=== PATIENT | male | born 1940 | race Caucasian/White ===

== ENCOUNTER 2022-05-01 08:32 | Day surgery (SDC) | payer MEDICARE, BC ==
[~2022-05-01 08:32] MED LIST: Bupivacaine 0.5% 50 ML MDV ONE; Bupivacaine 0.5%/EPINEPHrine 1:200,000 50 ML MDV ONE; Lidocaine 1% with EPINEPHrine 1:100,000 50 ML MDV ONE
[2022-05-01] MEDS ORDERED: Ondansetron 4 MG/2 ML SDV ONE (09:22)
[2022-05-01] MEDS ORDERED: Rocuronium 50 MG/5 ML Vial ONE (09:22)
[2022-05-01] MEDS ORDERED: Dexamethasone 4 MG/ML SDV ONE (09:22)
[2022-05-01] MEDS ORDERED: Glycopyrrolate 0.2 MG/ML 5 ML MDV ONE (09:22)
[2022-05-01] MEDS ORDERED: Neostigmine Methylsulfate 1 MG/ML 5 ML Syringe ONE (09:22)
[2022-05-01] MEDS ORDERED: Succinylcholine 200 MG/10 ML MDV ONE (09:22)
[2022-05-01] MEDS ORDERED: Propofol 200 MG/20 ML SDV ONE (09:22)
[2022-05-01 09:56] VITALS: BP 162/93; PULSE 49
[2022-05-01] MEDS ORDERED: fentaNYL 250 MCG/5 ML SDV ONE (09:59)
[2022-05-01] MEDS ORDERED: Acetaminophen 500 MG Tab PO ONE (10:30)
[2022-05-01] MEDS ORDERED: Lactated Ringers 1,000 ML IV SCH (11:00)
[2022-05-01] MEDS ORDERED: ceFAZolin 2 GM in Sodium Chloride 0.9% 50 ML IV ONE (12:00)
[2022-05-01] MEDS ORDERED: ceFAZolin 2 GM in Premix Bag 1 BAG IV ONE (12:00)
== END 2022-05-01 13:18 | disposition home or self-care (01) ==
LOC: JP.SDS 08:32
PROVIDERS: ATTEND Student in an Organized Health Care Education/Training Program
DX: R19.09 Other intra-abdominal and pelvic swelling, mass and lump (principal); Z53.09 Procedure and treatment not carried out because of other contraindication; E78.00 Pure hypercholesterolemia, unspecified; R59.1 Generalized enlarged lymph nodes; N18.31 Chronic kidney disease, stage 3a; K75.81 Nonalcoholic steatohepatitis (NASH); Z79.899 Other long term (current) drug therapy; Z87.891 Personal history of nicotine dependence; Z90.49 Acquired absence of other specified parts of digestive tract; Z98.890 Other specified postprocedural states; Z86.16 Personal history of COVID-19
CPT/HCPCS: 76870; A9270; J7120; J0330; J1100; J2405; J2704; J2710; J3010; J3490

== ENCOUNTER 2022-05-08 07:18 | Day surgery (SDC) | payer MEDICARE, BC ==
[~2022-05-08 07:18] MED LIST changes: +Dexamethasone 4 MG/ML SDV ONE; +Glycopyrrolate 0.2 MG/ML 5 ML MDV ONE; +Neostigmine Methylsulfate 1 MG/ML 5 ML Syringe ONE; +Ondansetron 4 MG/2 ML SDV ONE; +Propofol 200 MG/20 ML SDV ONE; +Rocuronium 50 MG/5 ML Vial ONE; +Succinylcholine 200 MG/10 ML MDV ONE; +fentaNYL 100 MCG/2 ML SDV ONE
[2022-05-08] MEDS ORDERED: Acetaminophen 500 MG Tab PO ONE (07:30)
[2022-05-08] MEDS ORDERED: Lactated Ringers 1,000 ML IV SCH (08:00)
[2022-05-08] MEDS ORDERED: Lactated Ringers 1,000 ML ONE (09:52)
[2022-05-08 12:33] VITALS: PULSE 59
[2022-05-08 12:56] VITALS: BP 157/69
== END 2022-05-08 13:40 | disposition home or self-care (01) ==
LOC: JP.SDS 07:18
PROVIDERS: ATTEND Student in an Organized Health Care Education/Training Program
DX: C82.45 Follicular lymphoma grade IIIb, lymph nodes of inguinal region and lower limb (principal); N40.0 Benign prostatic hyperplasia without lower urinary tract symptoms; N18.31 Chronic kidney disease, stage 3a; E78.00 Pure hypercholesterolemia, unspecified; Z79.899 Other long term (current) drug therapy; Z87.891 Personal history of nicotine dependence; Z86.16 Personal history of COVID-19
CPT/HCPCS: 27048; 88184; 88185; 88307; 88341; 88342; 88360; A9270; J0330; J1100; J2405; J2704; J2710; J3010; J3490; J7120

== ENCOUNTER 2022-08-21 08:53 | Emergency (ER) | payer MEDICARE, BC ==
[2022-08-21 09:06] VITALS: BP 123/87; PULSE 73
[2022-08-21] MEDS ORDERED: HYDROmorphone 0.5 MG/0.5 ML Syringe IM ONE ×2 (09:34→10:47)
== END 2022-08-21 13:08 | disposition home or self-care (01) ==
LOC: JP.ED 08:53
DX: M25.511 Pain in right shoulder (principal); M54.2 Cervicalgia; Z87.891 Personal history of nicotine dependence; Z79.899 Other long term (current) drug therapy
CPT/HCPCS: 72141; 73221; 96372; 99283; J1170

== ENCOUNTER 2024-03-19 10:00 | Emergency (ER) | payer MEDICARE, BC ==
[2024-03-19 10:18] VITALS: BP 130/84; PULSE 90
[2024-03-19 10:50] LABS: BASOPHILS ABSOLUTE AUTO 0.03 K/uL (0.00-0.10); BASOPHILS PERCENT AUTO 0.5 % (0.1-1.3); EOSINOPHILS ABSOLUTE AUTO 0.08 K/uL (0.00-0.40); EOSINOPHILS PERCENT AUTO 1.3 % (0.0-5.4); HEMATOCRIT 38.4 % (38.4-49.7); HEMOGLOBIN 13.9 g/dL (12.9-16.9); IMMATURE GRAN PERCENT AUTO 0.3 % (0.0-0.7); LYMPHOCYTES ABSOLUTE AUTO 0.81 K/uL (0.8-3.3); MEAN CORPUSCULAR HEMOGLOBIN 35.9 pg (31.6-35.5); MEAN CORPUSCULAR HGB CONC 36.2 g/dL (31.6-35.5); MEAN CORPUSCULAR VOLUME 99.2 fL (81.4-99.0); MONOCYTES ABSOLUTE AUTO 0.37 K/uL (0.20-0.90); MONOCYTES PERCENT AUTO 5.9 % (3.3-12.6); NEUTROPHILS ABSOLUTE AUTO 4.92 K/uL (1.0-7.6); PLATELET COUNT,PLT 127 K/uL (130-375); RED BLOOD CELL COUNT 3.87 M/uL (4.14-5.76); WHITE BLOOD CELL COUNT,WBC 6.2 K/uL (3.2-11.0)
[2024-03-19 10:54] LABS: IMMATURE GRAN ABSOLUTE AUTO 0.02 K/uL (0.00-0.23)
== END 2024-03-19 15:10 | disposition home or self-care (01) ==
LOC: JP.ED 10:00
DX: L03.115 Cellulitis of right lower limb (principal); N18.9 Chronic kidney disease, unspecified; Z86.16 Personal history of COVID-19; Z90.49 Acquired absence of other specified parts of digestive tract; Z79.2 Long term (current) use of antibiotics
CPT/HCPCS: 36415; 85025; 93971-26; 93971-RT; 99283; 99284

== ENCOUNTER 2025-05-25 06:23 | Day surgery (SDC) | payer MEDICARE, BC ==
[2025-05-25] MEDS: Lactated Ringers 1,000 ML IV SCH (07:06)
[2025-05-25 07:15] LABS: PLATELET COUNT,PLT 155.0 K/uL (130-375); RED BLOOD CELL COUNT 3.76 M/uL (4.14-5.76); WHITE BLOOD CELL COUNT,WBC 3.0 K/uL (3.2-11.0)
[2025-05-25] MEDS ORDERED: fentaNYL 250 MCG/5 ML SDV ONE (07:29)
[2025-05-25] MEDS ORDERED: Dexamethasone 4 MG/ML SDV ONE (07:30)
[2025-05-25] MEDS ORDERED: Ondansetron 4 MG/2 ML SDV ONE (07:30)
[2025-05-25] MEDS ORDERED: Propofol 200 MG/20 ML SDV ONE (07:30)
[2025-05-25 07:36] LABS: A/G RATIO 1.1 (1.2-2.2); ALANINE AMINOTRANSFERASE,ALT 56 U/L (12-78); ASPARTATE AMNIOTRANSFERASE,AST 46 U/L (15-37); BILIRUBIN TOTAL 0.9 mg/dL (0.2-1.0); BLOOD UREA NITROGEN,BUN 24 mg/dL (7-18); CARBON DIOXIDE,CO2 30 mmol/L (21-32); CHLORIDE,CL 106 mmol/L (100-108); CREATININE 1.1 mg/dL (0.8-1.3); EST CRCL DRUG DOSING (CG) 49.10 mL/min; ESTIMATED GFR 66 mL/min (>60); GLUCOSE RANDOM 111 mg/dL (74-106); POTASSIUM,K 4.3 mmol/L (3.6-5.2); PROTEIN TOTAL,TP 6.9 g/dL (6.4-8.2); SODIUM,NA 141 mmol/L (140-148)
[2025-05-25] MEDS: metroNIDAZOLE/Normal Saline 500 MG in Premix Bag 1 BAG IV ONE (07:37)
[2025-05-25] MEDS ORDERED: Glycopyrrolate 0.2 MG/ML 5 ML MDV ONE (08:23)
[2025-05-25] MEDS ORDERED: Ketorolac 30 MG/ML SDV ONE (08:32)
[2025-05-25] MEDS ORDERED: Lactated Ringers 1,000 ML ONE (09:18)
[2025-05-25] MEDS: Acetaminophen/HYDROcodone 325-5 MG Tab PO PRN (11:11)
[2025-05-25 11:14] VITALS: PULSE 69
[2025-05-25 11:26] VITALS: BP 149/70
== END 2025-05-25 11:47 | disposition home or self-care (01) ==
LOC: JP.SDS 06:23
PROVIDERS: ATTEND Surgery
DX: K40.31 Unilateral inguinal hernia, with obstruction, without gangrene, recurrent (principal); E78.00 Pure hypercholesterolemia, unspecified; Z87.891 Personal history of nicotine dependence; Z79.899 Other long term (current) drug therapy
CPT/HCPCS: 00790; 36415; 49651; 80053; 85027; A9270; C1781; J0169; J0665; J0690; J1100; J2405; J2704; J2795; J3010; J7120; J1596; J1836; J1885; J3490